=== PATIENT | female | born 1995 | race Caucasian/White ===

== ENCOUNTER 2018-08-24 06:15 | Inpatient (IN) | payer BC, MEDICAID ==
[2018-08-24 07:27] LABS: ABS Basophils 0 10^3/ul (0-0.2); ABS Eosinophils 0.1 10^3/ul (0-0.6); ABS Lymphocytes 2.2 10^3/ul (1.0-4.8); ABS Monocytes 0.7 10^3/ul (0-0.8); ABS Neutrophils 9.4 10^3/ul (1.5-7.7); ABS Nucleated RBC 0 10^3/ul; Eosinophil % 0.8 %; Hematocrit 36 % (35-47); Hemoglobin 12.7 g/dl (12.0-16.0); Lymphocyte % 17.6 %; Mean Corpuscular HGB Conc 35 g/dl (31-36); Mean Corpuscular Hemoglobin 27 pg (27-31); Mean Corpuscular Volume 77 fL (80-97); Mean Platelet Volume 8.6 fL (7.4-10.4); Nucleated Red Blood Cells % 0.2; Platelet Count 214 10^3/ul (150-450); Red Cell Distribution Width 14 % (10.5-15); White Blood Count 12.5 10^3/ul (3.5-10.8)
[2018-08-24] MEDS ORDERED: Bupivacaine 0.25% SDV PF* 10 ML VIAL INJ ONE ×2 (08:11→08:13)
[2018-08-24] MEDS ORDERED: OBEPIDURAL* 250 ML EPIDURAL ONE (08:12)
[2018-08-24] MEDS ORDERED: Buffered Lidocaine 1% SYRIN* 1 ML/SYRINGE INTRADERM ONE (08:19)
[2018-08-24] MEDS ORDERED: Lactated Ringers 1000 ML Bag* 1,000 ML IV ONE ×2 (08:19→08:30)
[2018-08-24] MEDS ORDERED: Phenylephrine IV* 40 MCG/ML 10 ML SYRINGE IV PUSH PRN (08:30)
[2018-08-24] MEDS ORDERED: Famotidine TAB* 20 MG PO PRN (08:30)
[2018-08-24] MEDS ORDERED: Sodium Citrate/Citric Acid* 15 ML UDC PO PRN (08:30)
[2018-08-24] MEDS ORDERED: EPHEDrine (Pressors)* 50 MG/ML VIAL IV PUSH PRN (08:30)
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
[2018-08-24] MEDS ORDERED: OBEPIDURAL* 250 ML EPIDURAL SCH (09:00)
[2018-08-24] MEDS ORDERED: Lactated Ringers 1000 ML Bag* 1,000 ML IV SCH ×3 (09:00→17:00)
[2018-08-24] MEDS ORDERED: Oxytocin in LR* 20 UNITS/1,000 ML BAG IVPB ONE (12:14)
[2018-08-24] MEDS ORDERED: Glycerin ADULT SUPP PR PRN (16:33)
--- NOTE | 2018-08-24 16:41 | PROCNOTE ---
[facility] OB: Delivery Note - Delivery A Date of : 08/24/18 Time of : 16:15 Sex: Male Weight at : 6 lb 13 oz Score 1 Minute: 8 Score 5 Minutes: 9 Gestational Age in Weeks and Days at Delivery: 38 Weeks and 0 Days Delivery Method: Low Vacuum Extraction, Vaginal Labor: Spontaneous Did Patient attempt ?: N/A, No Previous Amniotic Fluid: Clear Estimated Blood Loss: 200 Anesthesia/Analgesia: CEI for Labor Delivered By: Damon Lee - Nursery Level of Nursery: Regular/Bedside - Perineum Perineal Injury: 2nd Degree - Repaired with 3-0 vicryl suture. Perineal Repair: By Delivering Practioner - Events Delivery Events of Note: Other Delivery Events of Note Comment: bradycardic episode prior to Vacuum extraction.
[2018-08-24] MEDS ORDERED: Simethicone TAB* 80 MG TAB.CHEW PO SCH (17:30)
[2018-08-24] MEDS ORDERED: Lidocaine 1% INJ* 10 MG/ML 30 ML SDV ONE (18:01)
[2018-08-24] MEDS: Docusate CAP* 100 MG PO SCH (19:49)
[2018-08-24] MEDS: Ibuprofen TAB* 600 MG PO PRN (19:49)
[2018-08-25] MEDS: Ibuprofen TAB* 600 MG PO PRN ×4 (01:45→21:34)
[2018-08-25 06:23] LABS: ABS Basophils 0.1 10^3/ul (0-0.2); ABS Eosinophils 0.1 10^3/ul (0-0.6); ABS Lymphocytes 2.3 10^3/ul (1.0-4.8); ABS Monocytes 1.1 10^3/ul (0-0.8); ABS Neutrophils 11.2 10^3/ul (1.5-7.7); ABS Nucleated RBC 0 10^3/ul; Hematocrit 32 % (35-47); Lymphocyte % 15.6 %; Mean Corpuscular HGB Conc 35 g/dl (31-36); Mean Corpuscular Hemoglobin 27 pg (27-31); Mean Corpuscular Volume 78 fL (80-97); Mean Platelet Volume 8.7 fL (7.4-10.4); Nucleated Red Blood Cells % 0.1; Platelet Count 168 10^3/ul (150-450); Red Blood Count 4.05 10^6/ul (4.00-5.40); Red Cell Distribution Width 14 % (10.5-15); White Blood Count 14.8 10^3/ul (3.5-10.8)
[2018-08-25] MEDS: Docusate CAP* 100 MG PO SCH ×3 (08:29→20:34)
[2018-08-25] MEDS ORDERED: Ferrous Gluconate TAB* 324 MG TAB PO SCH (09:00)
[2018-08-25] MEDS: Dibucaine 1% 28.35 GM TUBE PR PRN (11:41)
[2018-08-25] MEDS: Acetaminophen TAB* 325 MG PO PRN (19:53)
[2018-08-25] MEDS: Witch Hazel PAD* JAR TOPICAL PRN (23:55)
[2018-08-26] MEDS: Ibuprofen TAB* 600 MG PO PRN (06:56)
[2018-08-26 07:34] VITALS: BP 109/71
[2018-08-26] MEDS: Dibucaine 1% 28.35 GM TUBE PR PRN (10:14)
[2018-08-26] MEDS: Docusate CAP* 100 MG PO SCH (10:14)
[2018-08-26] MEDS: Witch Hazel PAD* JAR TOPICAL PRN (10:14)
[2018-08-26] MEDS: Acetaminophen TAB* 325 MG PO PRN (10:16)
== END 2018-08-26 11:55 | disposition home or self-care (01) | DRG 560 ==
LOC: MCHOBOUT 06:15 → MCHOB 07:21
PROVIDERS: ADMIT Obstetrics & Gynecology; ATTEND Obstetrics & Gynecology
PROC: 10D07Z6 Extraction of Products of Conception, Vacuum, Via Natural or Artificial Opening (ICD-10-PCS; principal; 2018-08-24)
PROC: 0KQM0ZZ Repair Perineum Muscle, Open Approach (ICD-10-PCS; 2018-08-24)
DX: O60.23X1 Term delivery with preterm labor, third trimester, fetus 1 (principal); Z37.0 Single live birth; O99.344 Other mental disorders complicating childbirth; F32.9 Major depressive disorder, single episode, unspecified; O99.52 Diseases of the respiratory system complicating childbirth; J45.909 Unspecified asthma, uncomplicated; O70.1 Second degree perineal laceration during delivery; Z3A.38 38 weeks gestation of pregnancy
CPT/HCPCS: 36415; 85025; 86850; 86900; 86901; 99284; A9270-GY; J3490